=== PATIENT | female | born 1990 | race Caucasian/White ===

== ENCOUNTER 2018-06-13 15:44 | Emergency (ER) | payer SELFPAY ==
[~2018-06-13] VITALS: Ht 144.8 cm; Wt 74.0 kg
[2018-06-13 16:01] VITALS: BP 122/86
--- NOTE | 2018-06-13 16:11 | NUR ---
PT ARRIVES FROM CIRCUS CIRCUS AFTER HAVING A SUDDEN ONSET OF SOB AND NOT FEELING WELL. PT IS VERY ANXIOUS ON ARRIVAL. ALL VSS AT THIS TIME AND EKG SHOWS NO CARDIAC EMERGENCY. PT REPORTS HER HANDS AND FEET ARE TINGLING. PT HAS CLEAR LUNG SOUNDS AND IS BREATHING RAPIDLY. PT CONNECTED TO ALL MONITROS AND CALL LIGHT IN REACH. AWIATING FURTHER ORDERS. VSS.
--- NOTE | 2018-06-13 16:13 | NUR ---
PT GIVEN FEMININE HYGIEN PAD.
[2018-06-13] MEDS ORDERED: DIAZEPAM 5 MG TABLET ONE (16:44)
[2018-06-13] MEDS ORDERED: DIAZEPAM 5 MG TABLET PO STA (16:44)
[2018-06-13 17:04] LABS: BASOPHILS # (AUTO) 0.03 x10^3/uL (0-0.1); BASOPHILS % (AUTO) 0 % (0-1); EOSINOPHILS # (AUTO) 0.01 x10^3/uL (0-0.4); EOSINOPHILS % (AUTO) 0 % (1-7); LYMPHOCYTES # (AUTO) 1.24 x10^3/uL (1-3.4); LYMPHOCYTES % (AUTO) 14 % (22-44); MD NO; MEAN CORPUSCULAR HEMOGLOBIN 31.9 pg (27.0-34.8); MEAN CORPUSCULAR HGB CONC 34.9 g/dL (32.4-35.8); MEAN CORPUSCULAR VOLUME 91.5 fL (80-100); MEAN PLATELET VOLUME 8.2 fL (7.4-10.4); MONOCYTES # (AUTO) 0.41 x10^3/uL (0.2-0.8); MONOCYTES % (AUTO) 5 % (2-9); NEUTROPHILS % (AUTO) 81 % (42-75); PLATELET COUNT 269 x10^3/uL (130-400); RED BLOOD COUNT 4.27 x10^6/uL (3.82-5.3); RED CELL DISTRIBUTION WIDTH 12.8 % (9.6-15.2)
--- NOTE | 2018-06-13 17:10 | NUR ---
pt medicated per emar.
[2018-06-13 17:13] LABS: ALBUMIN 4.3 g/dL (3.4-5.0); ANION GAP 9 mmol/L (5-15); CALCIUM 9.1 mg/dL (8.5-10.1); CHLORIDE 107 mmol/L (98-107); CREATININE 0.72 mg/dL (0.55-1.02)
--- NOTE | 2018-06-13 18:19 | NUR ---
Patient/Caregiver given discharge instructions and they have confirmed that they understand the instructions. Patient ambulatory with steady gait.
== END 2018-06-13 18:54 | disposition home or self-care (01) ==
LOC: ED 16:50
DX: R06.00 Dyspnea, unspecified (principal); F41.1 Generalized anxiety disorder; R20.0 Anesthesia of skin
CPT/HCPCS: 36415; 71045; 80048; 82040; 84703; 85025; 93005; 99284